=== PATIENT | male | born 1975 | race Caucasian/White ===

== ENCOUNTER 2024-07-21 08:57 | Day surgery (SDC) | payer BC, SELFPAY ==
[2024-07-19 13:44] VITALS: BMI 32.2
[2024-07-21 09:13] VITALS: BMI 31.6
[2024-07-21 09:30] VITALS: BP 121/81; PULSE 71; RESP 16; TEMP 36.4; O2SAT 96
[2024-07-21] MEDS: Lactated Ringers 1,000 ML 100 ML IVCONT (09:42)
--- NOTE | 2024-07-21 10:05 | P.CONAN_ITS ---
Documented by User: Zahra Fontanez NP 07/20/24 08:56 HPI - Anesthesia Eval Consult details Narrative: 48yo M for Colonoscopy [facility], [facility] Past Medical History Medical History Elevated cholesterol HTN (hypertension) Surgical History Surgical History History of back surgery Hx of shoulder surgery Social History Social History (Updated 07/19/24 @ 13:46 by Saray Woods RN) Are you a primary care analyst to a significant other at home: No Do you presently have visiting nurse or other home services: No Patient Tobacco Use Status: Never used Tobacco Use of substances other than those prescribed or required for medical reasons: No Have you been hit, kicked, punched, or otherwise hurt by someone within the past year? If so, by whom?: No Are you DNR?: No Advance Directives: No Advance Directives Information Provided: Yes Recently lost weight without trying: No Nutrition Risks: No Nutritional Risk Meds Allergies Allergy/AdvReac Type Severity Reaction Status Date / Time Iodinated Contrast Media Allergy Intermediate DIFFICULTY Verified 07/21/24 09:37 [IV Dye, Iodine Containing] BREATHING shellfish derived Allergy Intermediate Shortness Verified 07/21/24 09:37 of Breath Home Medications ?Medication ?Instructions ?Recorded ?Confirmed ?Last Taken ?Type atorvastatin 40 mg tablet 40 mg PO DAILY 07/19/24 07/19/24 Unknown History lisinopril 10 mg tablet 10 mg PO DAILY 07/19/24 07/19/24 07/21/24 History Exam Height,Weight and Vital Signs: Height 5 ft 9 in Weight 98.883 kg Assessment and Plan Assessment Anesthesia Assessment: Chart Reviewed Documented by User: Claudia Kiser DO 07/21/24 10:08 [facility] Past Medical History Medical History Elevated cholesterol HTN (hypertension) Family History Family history of problems with anesthesia: No Surgical History Surgical History History of back surgery Hx of shoulder surgery History of Problems with Anesthesia: No Social History Social History (Updated 07/19/24 @ 13:46 by Saray Woods RN) Are you a primary care analyst to a significant other at home: No Do you presently have visiting nurse or other home services: No Patient Tobacco Use Status: Never used Tobacco Use of substances other than those prescribed or required for medical reasons: No Have you been hit, kicked, punched, or otherwise hurt by someone within the past year? If so, by whom?: No Are you DNR?: No Advance Directives: No Advance Directives Information Provided: Yes Recently lost weight without trying: No Nutrition Risks: No Nutritional Risk Meds Allergies Allergy/AdvReac Type Severity Reaction Status Date / Time Iodinated Contrast Media Allergy Intermediate DIFFICULTY Verified 07/21/24 09:37 [IV Dye, Iodine Containing] BREATHING shellfish derived Allergy Intermediate Shortness Verified 07/21/24 09:37 of Breath Home Medications ?Medication ?Instructions ?Recorded ?Confirmed ?Last Taken ?Type atorvastatin 40 mg tablet 40 mg PO DAILY 07/19/24 07/19/24 Unknown History lisinopril 10 mg tablet 10 mg PO DAILY 07/19/24 07/19/24 07/21/24 History Exam Exam Date and Time: 07/21/24 1002 Height,Weight and Vital Signs: Height 5 ft 9 in Weight 98.883 kg Vital Signs Temperature 97.5 F 07/21/24 09:30 Pulse Rate 71 07/21/24 09:30 Respiratory Rate 16 07/21/24 09:30 Blood Pressure 121/81 07/21/24 09:30 Pulse Oximetry 96 07/21/24 09:30 Oxygen Delivery Method Room Air 07/21/24 09:30 Temperature 97.5 F 07/21/24 09:30 Pulse Rate 71 07/21/24 09:30 Respiratory Rate 16 07/21/24 09:30 Blood Pressure 121/81 07/21/24 09:30 Pulse Oximetry 96 07/21/24 09:30 Oxygen Delivery Method Room Air 07/21/24 09:30 Airway Mallampati Class: II TM Dist: >3cm Neck ROM: Full Loose/Missing/Broken Teeth: No (patient denies any loose or broken teeth) Heart: S1S2 Lungs: CTAB Assessment and Plan Assessment Anesthesia Assessment: Anesthesia Plan Discussed and Chart Reviewed Final Anesthetic Review Family History of Problems with Anesthesia: No History of Problems with Anesthesia: No NPO: Yes ASA Class: II Final Preanesthetic Review: No Changes in Pt Med Stat, Meds/Allgs Chart Reviewed, Consent Obtained/Reviewed and Anes Risks/Benef Reviewed Patient Risk: Low Procedure Risk: Low Anesthetic Plan Anesthetic Plan: MAC: and Agree w/ Assess. and Plan Disposition: Standard PACU
--- NOTE | 2024-07-21 10:53 | PM.OP ---
Brief Operative Note Date of Service: 07/21/24 Pre-op diagnosis: Screening Post-op diagnosis: other (Internal hemorrhoids) Procedure: Colonoscopy to the cecum Surgeon: Terry Johnston MD Anesthesia: MAC Was an Funds Development Director used for this Procedure?: No Estimated blood loss (mL): 0 Pathology: none sent Condition: stable Disposition: PACU
[2024-07-21 10:54] VITALS: BP 111/75; PULSE 71; RESP 16; TEMP 36.1; O2SAT 95
[2024-07-21 11:09] VITALS: BP 128/89; PULSE 77; RESP 14; TEMP 36.1; O2SAT 97
--- NOTE | 2024-07-21 11:36 | OP_ITS ---
DATE OF SERVICE: 07/21/2024 SURGEON: Terry Johnston MD INDICATIONS: The patient presents for evaluation of colorectal cancer screening. Full consent has been obtained from him for this, including risks of bleeding and perforation. PREOPERATIVE DIAGNOSIS: Colorectal cancer screening. POSTOPERATIVE DIAGNOSIS: PROCEDURE PERFORMED: Colonoscopy to the cecum. ESTIMATED BLOOD LOSS: COMPLICATIONS: ANESTHESIA: Monitored anesthesia care. ASSISTANTS: SPECIMENS: POSTOPERATIVE DIAGNOSES: Colorectal cancer screening, internal hemorrhoids. DESCRIPTION OF PROCEDURE: The patient was placed in the left lateral decubitus position. The digital rectal exam revealed no abnormalities. The Olympus video pediatric colonoscope was entered into the rectum and advanced to the cecum with the assistance of abdominal wall pressure. Once in the cecum, I did identify cecal pouch with appendiceal orifice and ileocecal valve. There was transillumination of light deep in the right lower quadrant. The entire cecum appeared normal. The ileocecal valve appeared somewhat lipomatous with some erythema but without any mucosal abnormality otherwise. The scope was slowly withdrawn assessing all mucosal surfaces carefully. Preparation was excellent. I did not visualize any sign of polyps, colitis, nor angiodysplasia. In the rectum, scope was retroflexed visualizing internal hemorrhoids but no other pathology. The rectal mucosa appeared normal. The scope was straightened and withdrawn from the patient. He tolerated the procedure well and was returned to the recovery area in stable condition. IMPRESSION: Internal hemorrhoids, otherwise normal colonoscopy. PLAN: Given today's negative exam and negative family history, I would recommend a followup colonoscopy in 10 years for further screening. He will otherwise see me on a p.r.n. basis. MD EVAN Nicolas/[email or web address] / [id number]
== END 2024-07-21 11:34 | disposition home or self-care (01) ==
PROVIDERS: PCP Internal Medicine; Visit Provider Internal Medicine
PROC: 0DJD8ZZ Inspection of Lower Intestinal Tract, Via Natural or Artificial Opening Endoscopic (ICD-10-PCS; CPT 45378; principal; 2024-07-21 10:10)
DX: Z12.11 Encounter for screening for malignant neoplasm of colon (principal); K64.8 Other hemorrhoids; I10 Essential (primary) hypertension; E78.00 Pure hypercholesterolemia, unspecified; Z79.899 Other long term (current) drug therapy
CPT/HCPCS: 45378; J2704